=== PATIENT | female | born 2000 ===

== ENCOUNTER 2020-02-29 17:26 | Emergency (ER) | payer SELFPAY ==
[2020-02-29] MEDS ORDERED: ONDANSETRON 4 MG TAB.RAPDIS PO ONE (19:18)
--- NOTE | 2020-02-29 19:19 | ER Document Report ---
ED Fever - General Chief Complaint: Sore Throat Stated Complaint: SORE THROAT,FEVER,VOMITING Time Seen by Provider: 02/29/20 18:44 Primary Care Provider: GABBI PALMER MD [COMMUNITY BASED STAFF] - Follow up as needed Mode of Arrival: Ambulatory Information source: Patient Notes: 19-year-old female with no previous medical problems presents to the emergency room complaining of a sore throat that started today along with some vomiting. States she had a fever at home of 102 did not take any medications for her symptoms. States she was seen at an urgent care last week and diagnosed with a UTI states she took all her antibiotics but still has some burning and frequency. Denies any recent travel. No COVID-19 exposure. No ill contacts. TRAVEL OUTSIDE OF THE [place] IN LAST 30 DAYS: No - Related Data Allergies/Adverse Reactions: Penicillins Allergy (Intermediate, Verified 02/29/20 19:01) Home Medications: certaline, ativan Past Medical History - General Information source: Patient - Social History Smoking Status: Never Smoker Frequency of alcohol use: Social Drug Abuse: None Family History: Reviewed & Not Pertinent Patient has homicidal ideation: No Review of Systems - Review of Systems Constitutional: Fever EENT: Throat pain Cardiovascular: No symptoms reported Respiratory: No symptoms reported Gastrointestinal: Vomiting. denies: Abdominal pain, Diarrhea, Nausea Genitourinary: Dysuria, Urgency Female Genitourinary: No symptoms reported Musculoskeletal: No symptoms reported Skin: No symptoms reported Neurological/Psychological: No symptoms reported -: Yes All other systems reviewed and negative Physical Exam - Vital signs Vitals: Temp 99.0 F 02/29/20 18:49 - Notes Notes: VITAL SIGNS: Within normal limits. GENERAL: Mild acute distress, non-toxic appearance. HEAD: Normal with no signs of head trauma. EYES: PERRLA, EOMI, conjunctiva normal, no discharge. EARS: Hearing grossly intact. NOSE: Normal. THROAT: Oropharynx is normal. Positive pharyngeal erythema, no exudate. No tonsillar enlargement. NECK: Normal range of motion, no tenderness, supple, no lymphadenopathy, No adenopathy, no JVD. Negative Meningismus, Negative brudzzinski, Negative Kernig's, no Nestor's angina CHEST: Clear breath sounds bilaterally. No wheezes, rales, or rhonchi. CARDIAC: Regular rate and rhythm. S1 and S2, without murmurs, gallops, or rubs. VASCULAR: No Edema. Peripheral pulses normal and equal in all extremities. ABDOMEN: Normal and soft with no tenderness, no masses or pulsatile masses. GASTROINTESTINAL: Bowel sounds normal GENITOURINARY: Normal, No tenderness LYMPATHTIC: No lymphadenopathy noted. MUSCULOSKELETAL: Good range of motion of all major joints. Extremities without clubbing, cyanosis or edema. NEUROLOGICAL: Alert and oriented x 3. No focal sensory or strength deficits. Speech normal. Follows commands appropriately. PSYCHIATRIC: Normal Affect, judgement and mood. SKIN: Normal appearance with no rashes or lesions. Course - Re-evaluation Re-evalutation: 02/29/20 20:34 Patient is is afebrile, nontoxic-appearing, able to tolerate p.o. fluids. Reviewed lab results with patient. She was counseled on need to take all antibiotics as prescribed. Patient aware that she will need 2 different antibiotics as her allergic reaction to penicillin includes hives cannot use Keflex. Will discharge home on azithromycin for the strep throat, Bactrim for the UTI. Zofran as needed for nausea. Outpatient follow-up with a primary care physician if not improving in 2 to 3 days. On-call physician was provided. Where that she will be notified if culture report for her urine requires any change in her antibiotics. Tylenol and or Motrin for fevers. Patient was given strict return to the emergency room guidelines. Return for any new or worsening symptoms. All questions were answered. Patient verbalized understanding and agrees with plan of care. 02/29/20 20:49 02/29/20 21:38 - Vital Signs Vital signs: Temp Pulse Resp BP Pulse Ox 98.7 F 80 18 126/78 H 98 02/29/20 20:00 02/29/20 20:00 02/29/20 20:00 02/29/20 20:00 02/29/20 20:00 - Laboratory Laboratory results interpreted by me: 02/29/20 19:30 Urine Protein 30 H Urine Ketones TRACE H Urine Blood MODERATE H Urine Urobilinogen 2.0 H Leukocyte Esterase Rfl SMALL H Discharge - Discharge Clinical Impression: Strep throat UTI (urinary tract infection) Qualifiers: Urinary tract infection type: site unspecified Hematuria presence: without hematuria Qualified Code(s): N39.0 - Urinary tract infection, site not specified Nausea and vomiting Qualifiers: Vomiting type: unspecified Vomiting Intractability: non-intractable Qualified Code(s): R11.2 - Nausea with vomiting, unspecified Condition: Stable Disposition: HOME, SELF-CARE Instructions: Antinausea Medication ([facility]), Strep Throat ([facility]), Urinary Tract Infection ([facility]) Additional Instructions: Take all antibiotics as prescribed. Zofran as needed for nausea. Tylenol and/or Motrin as needed for fevers. Notify the pain changes to antibiotics are required after we get your urine culture results back. Outpatient follow-up with primary care physician if not improving in 2 to 3 days. Return to the emergency room for any new or worsening symptoms. Prescriptions: Ondansetron [Zofran Odt 4 mg Tablet] 1 tab PO Q4HP PRN #10 tab.rapdis PRN Reason: Sulfamethoxazole/Trimethoprim [Bactrim Ds Tablet] 1 each PO BID #10 tablet Azithromycin [Zithromax 250 mg Tablet] 250 mg PO ASDIR PRN #6 tablet PRN Reason: Referrals: GABBI PALMER MD [COMMUNITY BASED STAFF] - Follow up as needed
[2020-02-29] MEDS ORDERED: ACETAMINOPHEN 325 MG TABLET PO ONE (20:00)
[2020-02-29 20:26] LABS: APPEARANCE,URINE SLIGHTLY-CLOUDY; BILIRUBIN,URINE NEGATIVE (NEGATIVE); COLOR,URINE YELLOW; GLUCOSE, URINE NEGATIVE (NEGATIVE); KETONES,URINE TRACE mg/dL (NEGATIVE); PROTEIN,URINE 30 mg/dL (NEGATIVE)
[2020-02-29 21:44] VITALS: BP 126/78
== END 2020-02-29 20:58 | disposition home or self-care (01) ==
LOC: ER 17:26
DX: J02.0 Streptococcal pharyngitis (principal); N39.0 Urinary tract infection, site not specified; R11.2 Nausea with vomiting, unspecified; R50.9 Fever, unspecified; Z88.0 Allergy status to penicillin
CPT/HCPCS: 99283; 87086; 87880; 81025; 87088; 81001; S0119; 87186